=== PATIENT | female | born 1995 | race Two or more races ===

== ENCOUNTER 2017-01-29 21:57 | Emergency (ER) | payer OTHER ==
[2017-01-29 22:08] VITALS: BP 103/68; PULSE 75; TEMP 98.1; BMI 21.2
[2017-01-29] MEDS ORDERED: IBUPROFEN 600 MG TABLET (FP) PO ONE ×2 (22:46→22:47)
--- NOTE | 2017-01-29 22:46 | PDOC ---
History of Present Illness - General Chief Complaint: Pain Stated Complaint: L JAW PAIN Time Seen by Provider: 01/29/17 22:05 History Source: Patient Exam Limitations: No Limitations - History of Present Illness Initial Comments: 01/29/17 22:42 This is a 21-year-old female who comes in complaining of left-sided jaw pain in the area of her left TMJ. Patient said she's been under a lot of stress at school and this is exam week. Patient took some ibuprofen 1 dose and said it wasn't helpful. Patient said pain is worse when she wakes up in the morning. Patient denies history of similar pain in the past. PAST MEDICAL HISTORY: no significant history PAST SURGICAL HISTORY: no significant history FAMILY HISTORY: no pertinant history SOCIAL HISTORY: Pt lives with family and is employed. MEDICATIONS: reviewed ALLERGIES: As per nursing notes Review of Systems General: No fevers or chills, no weakness, no weight loss HEENT: No change in vision. No sore throat,. No ear pain, left TMJ pain as per history of present illness CardioVascular: No chest pain or shortness of breath Respiratory:No cough, or wheezing. Gastrointestinal: no nausea, vomitting, diarrhea or constipation, No rectal bleeding Genitourinary: No dysuria, hematuria, or frequency Musculoskeletal: No joint or muscle pain or swelling Neurologic: No headache, vertigo, dizziness or loss of consciousness Psychiatric: nor depression Skin: No rashes or easy bruising Endocrine: no increased thirst or abnormal weight change Allergic: no skin or latex allergy All other systems reviewed and normal GENERAL: The patient is awake, alert, and fully oriented, in no acute distress. HEAD: Normal with no signs of trauma. There is some tenderness and spasm over the left TMJ area. On evaluation of patient's bite there is some asymmetry of the bite secondary to some spasm of the masseter muscles on the left side of her face. EYES: Pupils equal, round and reactive to light, extraocular movements intact, sclera anicteric, conjunctiva clear. EXTREMITIES: Normal range of motion, no edema. NEUROLOGICAL: Normal speech, normal gait. PSYCH: Normal mood, normal affect. SKIN: Warm, Dry, normal turgor, no rashes or lesions noted. Assessment and plan: This is a 21-year-old female who comes in complaining of left TMJ pain. Discussed with patient causes of TMJ pain and the importance of taking an anti-inflammatory initially here for the next week during exams and if she still is having discomfort spasm and pain and follow-up with a dentist or ENT. Past History - Past Medical History Allergies/Adverse Reactions: Allergies Allergy/AdvReac Type Severity Reaction Status Date / Time No Known Allergies Allergy Unverified 01/29/17 22:03 Home Medications: Ambulatory Orders NK [No Known Home Medication] 01/29/17 Cardiac Disorders: Yes (ABLASION) - Immunization History Immunization Up to Date: Yes - Psycho/Social/Smoking Cessation Hx Anxiety: No Suicidal Ideation: No Smoking History: Never smoked Have you smoked in the past 12 months: No Number of Cigarettes Smoked Daily: 0 Information on smoking cessation initiated: No Hx Alcohol Use: No Drug/Substance Use Hx: No Substance Use Type: None *Physical Exam - Vital Signs Last Vital Signs Temp Pulse Resp BP Pulse Ox 98.1 F 75 14 103/68 100 01/29/17 22:04 01/29/17 22:04 01/29/17 22:04 01/29/17 22:04 01/29/17 22:04 *DC/Admit/Observation/Transfer Diagnosis at time of Disposition: Temporomandibular joint disorder - Discharge Dispostion Disposition: HOME Condition at time of disposition: Good Admit: No - Patient Instructions Additional Instructions: Take ibuprofen 3 tablets twice a day in the morning and at night with food. Do this for the next week If you're still experiencing pain or discomfort after 1 week follow-up with either a dentist or senior research consultant. Return to the emergency department immediately with ANY new, persistent or worsening symptoms. Continue any medications as previously prescribed by your physician. You should follow up with your primary doctor as soon as possible regarding today's emergency department visit. . Please make sure your doctor reviews the results of your emergency evaluation. Thank you for coming to the Emergency Department today for your care. It was a pleasure to see you today. Please note that your evaluation is INCOMPLETE until you follow-up with your doctor.
== END 2017-01-29 22:46 | disposition home or self-care (01) ==
LOC: FER 21:57
DX: M26.609 Unspecified temporomandibular joint disorder, unspecified side (principal)
CPT/HCPCS: 99282-25

== ENCOUNTER 2017-04-26 19:51 | Emergency (ER) | payer OTHER ==
[2017-04-26 20:15] VITALS: BP 115/65; PULSE 75; TEMP 98.6; BMI 20.1
[2017-04-26] MEDS ORDERED: IBUPROFEN 600 MG TABLET (FP) PO ONE ×2 (20:39→20:42)
[2017-04-26] MEDS ORDERED: PSEUDOEPHEDRINE HCL 30 MG TABLET PO ONE (20:39)
[2017-04-26] MEDS ORDERED: PSEUDOEPHEDRINE HCL 30 MG TABLET ONE (20:41)
--- NOTE | 2017-04-26 20:42 | PDOC ---
History of Present Illness - General History Source: Patient Exam Limitations: No Limitations - History of Present Illness Initial Comments: 04/26/17 20:43 The patient is a 21 year old female, with no significant past medical history, who presents to the emergency department with complaints of cold-like symptoms for 2 weeks. The patient reports that she feels as though she has a sinus infection and been taking a Z pack for the past 5 days with no relief. She reports some associated pain upon deep inspiration. She denies, headache and dizziness. She denies fever, chills, nausea, vomit, diarrhea and constipation. Allergies: None Social history: Never smoked PCP: Dr. Behzad Kemp <Ranjana Colin - Last Filed: 04/26/17 20:42> - General History Source: Patient Exam Limitations: No Limitations <Prabha De La Rosa - Last Filed: 04/26/17 21:27> - General Chief Complaint: Cold Symptoms Stated Complaint: COLD SYMPTOMS X 2 WEEKS Time Seen by Provider: 04/26/17 20:13 Past History <Ranjana Colin - Last Filed: 04/26/17 20:42> - Past Medical History Cardiac Disorders: Yes (ABLATION) - Immunization History Immunization Up to Date: Yes - Psycho/Social/Smoking Cessation Hx Anxiety: No Suicidal Ideation: No Smoking History: Never smoked Have you smoked in the past 12 months: No Number of Cigarettes Smoked Daily: 0 Hx Alcohol Use: No Drug/Substance Use Hx: No Substance Use Type: None <Prabha De La Rosa - Last Filed: 04/26/17 21:27> - Past Medical History Allergies/Adverse Reactions: Allergies Allergy/AdvReac Type Severity Reaction Status Date / Time No Known Allergies Allergy Unverified 01/29/17 22:03 Home Medications: Ambulatory Orders Albuterol Sulfate Inhaler - [Ventolin HFA Inhaler -] 2 puff IH Q4H #1 inhaler Review of Systems - Review of Systems Able to Perform ROS?: Yes Comments:: 04/26/17 20:43 GENERAL/CONSTITUTIONAL: No fever or chills. No weakness. HEAD, EYES, EARS, NOSE AND THROAT: +Sinus pressure No change in vision. No ear pain or discharge. No sore throat. GASTROINTESTINAL: No nausea, vomiting, diarrhea or constipation. GENITOURINARY: No dysuria, frequency, or change in urination. CARDIOVASCULAR: No chest pain or shortness of breath. RESPIRATORY: +Mild pain on deep inspiration No cough, wheezing, or hemoptysis. MUSCULOSKELETAL: No joint or muscle swelling or pain. No neck or back pain. SKIN: No rash NEUROLOGIC: No headache, vertigo, loss of consciousness, or change in strength/ sensation. ENDOCRINE: No increased thirst. No abnormal weight change. HEMATOLOGIC/LYMPHATIC: No anemia, easy bleeding, or history of blood clots. ALLERGIC/IMMUNOLOGIC: No hives or skin allergy. <Ranjana Colin - Last Filed: 04/26/17 20:42> *Physical Exam - Vital Signs Last Vital Signs Temp Pulse Resp BP Pulse Ox 98.6 F 75 15 115/65 100 04/26/17 19:52 04/26/17 19:52 04/26/17 19:52 04/26/17 19:52 04/26/17 19:52 - Physical Exam Comments: 04/26/17 20:44 GENERAL: Awake, alert, and fully oriented, in no acute distress HEAD: No signs of trauma EYES: PERRLA, EOMI, sclera anicteric, conjunctiva clear ENT: Auricles normal inspection, nares patent, Moist mucosa NECK: Normal ROM, supple, no lymphadenopathy, JVD, or masses LUNGS: Breath sounds equal, clear to auscultation bilaterally. No wheezes, and no crackles HEART: Regular rate and rhythm, normal S1 and S2, no murmurs, rubs or gallops ABDOMEN: Soft, nontender, normoactive bowel sounds. No guarding, no rebound. No masses EXTREMITIES: Normal range of motion, no edema. No clubbing or cyanosis. No cords, erythema, or tenderness NEUROLOGICAL: Normal speech SKIN: Warm, Dry, normal turgor, no rashes or lesions noted. <Ranjana Colin - Last Filed: 04/26/17 20:42> - Vital Signs Last Vital Signs Temp Pulse Resp BP Pulse Ox 98.6 F 75 15 115/65 100 04/26/17 19:52 04/26/17 19:52 04/26/17 19:52 04/26/17 19:52 04/26/17 19:52 <Prabha De La Rosa - Last Filed: 04/26/17 21:27> ED Treatment Course - RADIOLOGY Radiology Studies Ordered: Category Date Time Status CHEST PA & LAT [RAD] Stat Radiology 04/26/17 20:38 Ordered <Prabha De La Rosa - Last Filed: 04/26/17 21:27> Medical Decision Making - Medical Decision Making 04/26/17 20:40 21 yo F no pmhx her ewith cough nasal congestion x 2 weeks. took z deidre she got from her mother, no improvement. feels buring in chest with breathing and coughing . no travel no sick contacts. no mod factors. concerned was a sinus infection. on exam awake alert lungs clear bilaterally heart RRR no mr/g abd soft NT ND ext wwp no edema . plan decongestants, nsaid for pain, symtpomatic relief. inhaler prescription for bronchitis, and mucinex. dc followup pcp. cxr r/o pna. 04/26/17 21:23 cxr negative. dc home <Prabha De La Rosa - Last Filed: 04/26/17 21:27> *DC/Admit/Observation/Transfer - Attestations Scribe Attestion: 04/26/17 20:44 Documentation prepared by TEODORA Easton, acting as medical technologist for Prabha De La Rosa MD. <Ranjana Colin - Last Filed: 04/26/17 20:42> - Discharge Dispostion Admit: No <Prabha De La Rosa - Last Filed: 04/26/17 21:27> Diagnosis at time of Disposition: Sinusitis - Discharge Dispostion Disposition: HOME Condition at time of disposition: Improved - Prescriptions Prescriptions: Albuterol Sulfate Inhaler - [Ventolin HFA Inhaler -] 2 puff IH Q4H #1 inhaler - Referrals Referrals: Behzad Kemp MD [Primary Care Provider] - - Patient Instructions Printed Discharge Instructions: DI for Acute Bronchitis, DI for Viral Upper Respiratory Infection -- Adult Additional Instructions: take inhaler albuterol 2 puffs every 4 hours as needed for wheezing or cough, use mucinex as directed over the counter to help thin the mucous. you should take psuedoephedrine 30 mg every 6 hours as needed for nasal congestion. you have to ask pharmacist for this medication. you can also use flonase nasal spray ( inhaled over the counter ) one spray each nostril daily. follow up with your primary doctor as needed. your chest xray was normal today.
== END 2017-04-26 21:31 | disposition home or self-care (01) ==
LOC: FER 19:51
DX: J32.9 Chronic sinusitis, unspecified (principal)
CPT/HCPCS: 71020-TC; 99281-25

== ENCOUNTER 2019-11-11 14:55 | Emergency (ER) | payer OTHER ==
--- NOTE | 2019-11-11 15:04 | PDOC ---
History of Present Illness - General Chief Complaint: Headache Stated Complaint: HEADACHE FOR 11DAYS WAS STARTED ON SUMATRIP Time Seen by Provider: 11/11/19 15:04 - History of Present Illness Initial Comments: HPI: 24yo F with PMH of migraines presenting with headache x 11 days. Patient denies recent trauma or hitting her head. This headache is similar to those she has had in the past, but without photophobia. She saw her primary care physician on Friday and was prescribed imitrex and claritin which has not relieved her pain. She was given a referral for a neurologist (does not remember the name) and called and made an appointment, but the soonest appointment she could get was in one month. In addition, patient has tried many [id number] medications including tylenol, motrin, and excedrin without improvement of pain. Reports left-sided facial itching that has since resolved. Now feels numbness in that area. Denies nausea or vomiting. Currently using the nexplanon for control , so has intermittent vaginal spotting. No fevers or chills. PCP: Dr. Kincaid ROS: Constitutional: no fever, no chills HEENT: no throat pain, no dysphagia Cardiovascular: no chest pain, no palpitations Respiratory: no cough, no shortness of breath Gastrointestinal: no abdominal pain, no nausea Genitourinary: no dysuria, no hematuria Musculoskeletal: no myalgia, no arthralgia Skin: no rash, no itching Neurologic: +headache, no weakness Psych: no agitation, no anxiety PE: General: Awake, alert, and fully oriented, in no acute distress Head: No signs of trauma Eyes: EOMI, sclera anicteric ENT: Moist mucus membranes Neck: Normal ROM, supple Lungs: Lungs clear, Normal breath sounds Cardio: Regular rhythm, S1 and S2 present Abdomen: Soft, nontender. No guarding, no rebound, no masses Extremities: Normal range of motion, Distal pulses present SKIN: Warm, Dry, normal turgor Neurologic: Cranial nerves II through XII intact. Normal speech, sensation, strength, coordination, and gait. ED Course/MDM: DDX including but not limited to migraine headache, concussion, brain bleed, brain mass, tension headache, pseudotumor cerebri CT head Reglan Kendall 11/11/19 15:18 Patient states her headache is the same Pending CT Head report 11/11/19 17:07 CT Head: "EXAM#: TYPE/EXAM: RESULT: [id number] CT/HEAD CT WITHOUT CONTRAST Cranial CT without contrast Clinical information: headache x 11days The exam consists of contiguous direct transaxial images. Intravenous contrast was not administered. No intraparenchymal hemorrhage is seen. There is no CT evidence of acute subarachnoid hemorrhage. Subacute subarachnoid hemorrhage may not be demonstrable on CT. There is no extra-axial fluid collection. No obvious mass lesion is identified on noncontrast imaging. There is no definite abnormal intracranial attenuation. The ventricles and cisterns appear unremarkable. No calvarial defect is seen. The partially imaged paranasal sinuses demonstrate no opacification. Impression: No CT evidence of acute intracranial pathology as noted above. There has been no definite interval change in comparison to a CT study of 12/22/2004. Reported By: Dorian Resendez MD 11/11/19 [id number] " CT head unremarkable Headache now improved, now 12/06 Prescription sent to the pharmacy Patient to follow-up with neurology Return precautions Stable for discharge 11/11/19 17:36 Past History - Past Medical History Allergies/Adverse Reactions: Allergies Allergy/AdvReac Type Severity Reaction Status Date / Time No Known Allergies Allergy Verified 11/11/19 14:57 Home Medications: Ambulatory Orders Ibuprofen [Motrin -] 800 mg PO Q6H #60 tablet 11/11/19 Loratadine [Claritin] 10 mg PO DAILY 11/11/19 Metoclopramide HCl [Reglan] 10 mg PO DAILY PRN #10 tablet 11/11/19 Sumatriptan Succinate [Imitrex -] 1 tab PO DAILY 11/11/19 Cardiac Disorders: Yes (ABLATION) COPD: No - Immunization History Immunization Up to Date: Yes - Psycho Social/Smoking Cessation Hx Smoking History: Never smoked Have you smoked in the past 12 months: No Number of Cigarettes Smoked Daily: 0 Hx Alcohol Use: No Drug/Substance Use Hx: No Substance Use Type: None Discharge - Discharge Information Problems reviewed: Yes Clinical Impression/Diagnosis: Headache Qualifiers: Headache type: unspecified Headache chronicity pattern: unspecified pattern Intractability: not intractable Qualified Code(s): R51 - Headache Condition: Stable Disposition: HOME - Additional Discharge Information Prescriptions: Ibuprofen [Motrin -] 800 mg PO Q6H #60 tablet Metoclopramide HCl [Reglan] 10 mg PO DAILY PRN #10 tablet PRN Reason: Headache - Follow up/Referral - Patient Discharge Instructions Patient Printed Discharge Instructions: DI for Headache Additional Instructions: You came to the emergency department for a headache. You had a normal neurologic exam. A CT scan of your head was negative for acute ptahology. You can take [id number] tylenol or motrin for your headache. Follow the instructions on the medication bottle. Follow-up with your primary care physician within 72 hours to discuss this ED visit and to further evaluate your headache. Your care is not complete until you do so. Call and make an appointment. Medical attention is required if: you experience persistent symptoms, severe headache, have a seizure, or have focal numbness or weakness. If you think you are having an emergency, call for emergency medical services or present to the emergency department right away - Post Discharge Activity Work/Back to School Note: Back to Work
[2019-11-11 15:06] VITALS: BP 102/62; PULSE 75; TEMP 99.6; BMI 20.6
--- NOTE | 2019-11-11 15:07 | PDOC ---
Attending Attestation - Resident Resident Name: Lashonda Tyson - ED Attending Attestation I have performed the following: I have examined & evaluated the patient, The case was reviewed & discussed with the resident, I agree w/resident's findings & plan, Exceptions are as noted - HPI HPI: 11/11/19 17:36 Headache, intermittent, for 11 days. Unresponsive to [id number] analgesics and sumatriptan. Long history of migraines, but this is the first headache of this type for several years. It is left-sided, and accompanied by tingling in the left side of the face. No nausea or photophobia. No other focal neurologic symptoms. No chest pain, shortness of breath, abdominal pain, vomiting or diarrhea, urinary tract symptoms, vaginal bleeding or discharge. Patient does not menstruate because of implantable progesterone contraceptive. - Physicial Exam PE: 11/11/19 17:38 Physical exam: Alert oriented x3 well-developed well-nourished no acute distress , although complains of headache. Appears comfortable, coherent and cooperative. Afebrile, vital signs normal PERRLA 4 mm, fundi show arteriolar narrowing and decreased venous pulsations, left more than right. However, EOMs are full without diplopia and visual banuelos are intact to confrontation. There is no facial numbness to light touch or pinprick. However, subjective paresthesias are present. ENT clear Neck supple without bruit mass or nodes Lungs clear CV regular without murmur rub or gallop Abdomen benign Neurological C2 to 12 intact. Strength full and symmetric. No focal sensorimotor deficits. Cerebellar intact. Gait stable and unimpaired Skin clear, no rash, adequate turgor and wet mucous membranes - Medical Decision Making 11/11/19 17:40 Assessment: Prolonged headache, probably migraine/migraine equivalent, character of the headache is different than prior headaches and fundi show abnormalities Plan: Head CT performed. Results are negative. Patient has obtained considerable relief from Reglan and ibuprofen. These medications will be continued. She is referred to neurology for follow-up and encouraged seek evaluation as soon as possible due to the unusual and prolonged nature of her headache and the funduscopic findings. She understands and agrees , is pain-free at discharge, fully ambulatory and in no distress to follow-up as directed
[2019-11-11] MEDS ORDERED: METOCLOPRAMIDE HCL 10 MG TABLET (FP) PO ONE ×2 (15:44→15:46)
[2019-11-11] MEDS ORDERED: IBUPROFEN 400 MG TABLET (FP) PO ONE ×2 (15:44→15:46)
== END 2019-11-11 17:41 | disposition home or self-care (01) ==
LOC: FER 14:55
DX: R51 Headache (principal)
CPT/HCPCS: 70450-TC; 84703; 99284-25

== ENCOUNTER 2022-02-17 20:34 | Emergency (ER) | payer OTHER ==
[2022-02-17 20:49] VITALS: BP 120/70; PULSE 64; TEMP 98.4; BMI 22.8
[2022-02-17] MEDS ORDERED: KETOROLAC TROMETHAMINE 30 MG/1 ML VIAL ONE (22:21)
[2022-02-17] MEDS ORDERED: KETOROLAC TROMETHAMINE 60 MG/2 ML VIAL IM ONE (22:24)
[2022-02-17] MEDS ORDERED: ACETAMINOPHEN/CAFFEINE/BUTALBITAL 1 TAB ONE (23:06)
[2022-02-17] MEDS ORDERED: ACETAMINOPHEN/CAFFEINE/BUTALBITAL 1 TAB PO ONE (23:06)
== END 2022-02-17 23:11 | disposition home or self-care (01) ==
LOC: FER 20:34
PROC: 3E023GC Introduction of Other Therapeutic Substance into Muscle, Percutaneous Approach (ICD-10-PCS; principal; 2022-02-17)
DX: G44.52 New daily persistent headache (NDPH) (principal)
CPT/HCPCS: 70450-TC; 81025; 96372; 99284-25

== ENCOUNTER 2023-03-26 12:53 | Emergency (ER) | payer OTHER ==
[2023-03-26 13:25] VITALS: BP 108/74; PULSE 83; RESP 18; TEMP 98.1; BMI 21.0
[2023-03-26 14:33] LABS: HEMATOCRIT 37.7 % (32.4-45.2); HEMOGLOBIN 12.7 G/dL (10.7-15.3); MCH 31.7 pg (25.7-33.7); MCHC 33.7 g/dl (32.0-36.0); MEAN CELL VOLUME 94.1 fl (80-96); PLATELET COUNT 293.8 10^3/uL (134-434); RBC 4.01 10^6/uL (3.60-5.2); RDW 13.1 % (11.6-15.6); WHITE BLOOD COUNT 9.6 10^3/uL (4.0-10.8)
[2023-03-26 14:41] LABS: PLATELET ESTIMATE ADEQUATE
[2023-03-26 14:43] LABS: ALBUMIN 4.8 g/dl (3.4-5.0); BILIRUBIN,TOTAL 0.7 mg/dl (0.2-1); BLOOD UREA NITROGEN 12.1 mg/dl (7-18); CALCIUM 9.5 mg/dl (8.5-10.1); CREATININE 0.8 mg/dl (0.6-1.3); POTASSIUM 3.3 mmol/L (3.5-5.1); SGOT/AST 12.8 U/L (15-37); SGPT/ALT 7.9 U/L (7-52); TOT PROT 7.6 g/dl (6.4-8.2)
[2023-03-26 14:43] LABS: EPITHELIAL CELLS RARE /hpf
[2023-03-26] MEDS ORDERED: ONDANSETRON *ODT* 4 MG TABLET SL ONE (14:46)
[2023-03-26] MEDS ORDERED: FAMOTIDINE 20 MG TABLET PO ONE (14:47)
[2023-03-26] MEDS ORDERED: ONDANSETRON *ODT* 4 MG TABLET ONE (15:03)
[2023-03-26] MEDS ORDERED: FAMOTIDINE 20 MG TABLET ONE (15:03)
[2023-03-26] MEDS ORDERED: POTASSIUM CHLORIDE ORAL LIQUID 20 MEQ/15 ML PO ONE (15:22)
[2023-03-26] MEDS ORDERED: POTASSIUM CHLORIDE ORAL LIQUID 20 MEQ/15 ML ONE (15:28)
== END 2023-03-26 15:41 | disposition home or self-care (01) ==
LOC: FER 12:53
DX: R10.84 Generalized abdominal pain (principal); R11.2 Nausea with vomiting, unspecified; R19.7 Diarrhea, unspecified; R05.9 Cough, unspecified; A08.4 Viral intestinal infection, unspecified; E87.6 Hypokalemia
CPT/HCPCS: 36415; 80053; 81003; 81015; 84703; 85027; 99283-25; Q0162